=== PATIENT | male | born 1985 | race Hispanic/Latino ===

== ENCOUNTER 2020-04-10 17:33 | Inpatient (IN) | payer OTHER, SELFPAY ==
[~2020-04-10 17:33] MED LIST: Iopamidol-370 76% 500 ML 1 ML ONE
[2020-04-10] MEDS ORDERED: Morphine 4 MG/ML VIAL ONE ×3 (18:58→23:19)
[2020-04-10] MEDS ORDERED: Ondansetron PF 4 MG/2 ML Vial ONE (18:58)
[2020-04-10] MEDS ORDERED: Albuterol 200 PUFF (6.7GM INHALER) ONE (19:09)
--- NOTE | 2020-04-10 19:31 | CT ---
Exam: CT angiogram of the chest HISTORY: HIV with Kaposi syndrome. COMPARISON: None TECHNIQUE: CT angiogram of the chest is performed in the axial plane. Three-dimensional reformatted i mages are submitted for interpretation FINDINGS: Mediastinum: No mass, lymphadenopathy or hematoma. HEART: Normal size. No significant pericardial fluid. Aorta: No aneurysm or dissection Upper solid abdominal viscera: No abnormality enhancement. Trachea and central bronchi: Patent Pleural spaces: Small bilateral pleural effusionsAxilla: There are enlarged bilateral axillary lymph nodes. Relays Draftsperson right axillary lymph node measures 2.2 x 1.6 cm. Lung parenchyma: There is a linear opacification likely representing atelectasis. Consolidation due t o pneumonia or aspiration in the lower lobes cannot be entirely excluded. Pneumothorax: None Osseous structures: No lytic or blastic lesions Pulmonary arteries: Adequate contrast opacification pulmonary arterial system to the level of lobar a rteries. No filling defect to suggest pulmonary embolism. Evaluation the segmental and subsegmental arteries is limited due to timing of contrast bolus. IMPRESSION: 1. No evidence of pulmonary artery embolism to the level of the lobar arteries. 2. Enlarged bilateral axillary lymph nodes 3. Linear and more focal consolidation scattered throughout the lung parenchyma which may represent a reas of consolidation due to pneumonia or aspiration. Additional linear opacities may represent atelectasis.
--- NOTE | 2020-04-10 19:43 | CT ---
EXAM: CT ABDOMEN AND PELVIS HISTORY: Sepsis. HIV-positive. COMPARISON: None. Procedure: Multiple contiguous axial images were obtained and a CT of the abdomen and pelvis with IV contrast. C oronal reformats were performed. FINDINGS: Lower Chest: Refer to CT angiogram of the chest with regards to the lung parenchyma Vessels: Normal caliber aorta. Heart: Normal size. No significant pericardial fluid. Abdomen: Portal vein:Patent. Nonspecific periportal edema Gallbladder: Mild pericholecystic fluid. Liver: 0.7 cm hypodensity in the right hepatic lobe, to characterize. No enhancing masses. Pancreas: within normal limits. Spleen: Appropriate enhancement. Splenomegaly, measuring 16.7 cm Adrenals: within normal limits. Kidneys: Symmetric enhancement. No obstructive uropathy. Peritoneum: There is evidence of perihepatic and perisplenic fluid. Fluid tracks along the left and r ight paracolic gutter. Fluid is slightly complex. Bowel: Limited evaluation by the lack of oral contrast. No evidence of a small bowel obstruction. Ile ocecal junction appears to be normal. Normal caliber appendix. Cecum, ascending colon appear to have a normal appearance. There does appear to be mucosal thickening involving the descending colon a nd sigmoid colon. Correlate for infectious or inflammatory colitis. There appears be mucosal thickening involving the distal sigmoid colon and rectum. Correlate for proctitis. Mesentery and Retroperitoneum: There are enlarged mesenteric lymph nodes. Senior Net Web Developer enlarged lym ph node measures 1.6 x 1.3 cm. Abdominal Wall: within normal limits. Pelvis: Reproductive Organs: Reproductive organs are unremarkable. Pelvis: No mass, lymphadenopathy, free air or free fluid. There is stranding of the presacral fat. Bladder: There is enhancement of the bladder mucosa. Correlate for cystitis. Bones: within normal limits. IMPRESSION: 1. There are new appear to be reactive changes involving the abdominal mesentery with lymphadenopathy and fluid. Correlate for mesenteric lymphadenitis. 2. Correlate for cystitis. 3. Correlate for cholecystitis 4. Bowel wall thickening predominantly involving the colon. Correlate for colitis and proctitis.
[2020-04-10 21:05] LABS: Bacteria/HPF None Seen HPF (None Seen); Bilirubin Negative (Negative); Blood, Urine 3+ (Negative); Clarity Clear (Clear); Glucose, Urine (Dipstick) Normal (Negative); Ketone, Urine Negative (Negative); Leukocyte Negative Leu/uL (Negative); Nitrite Negative (Negative); Protein, Urine (Dipstick) 20 mg/dL (Neg-Trace); RBC/HPF Greater than 50 HPF (0-3); Renal Epithelial 0-3 HPF (None Seen); Squamous Epithelial None Seen HPF (0-3); Urobilinogen Normal mg/dL (Less than 2); pH, Urine 5.5 (5.0-9.0)
--- NOTE | 2020-04-10 21:31 | ULT ---
EXAM: US Gallbladder RUQ CLINICAL HISTORY: Pain and jaundice.. COMPARISON: None Correlation: Abdomen pelvis CT 04/10/2020 FINDINGS: Pancreas: This is pancreas has a normal echotexture Liver:Echogenic focus in the right hepatic lobe measuring 1 cm, nonspecific additional smaller echoge ellen foci are noted. Small amount of perihepatic fluid. Right hepatic lobe: 20.6 cm Gallbladder: No sonographic of cholelithiasis. Gallbladder wall is 0.3 cm with upper normal thickness . There is pericholecystic fluid. Becker's sign:Positive Portal Vein: Patent. Appropriate directional flow Bile ducts: 0.4 cm common bile duct diameter Right kidney: No hydronephrosis. Right kidney measures 12.2 cm in length. IMPRESSION: 1. Multiple echogenic foci in the right hepatic lobe of the liver, too small to further characterize. Small hemangiomas are a consideration. Confirmation with a nonemergent abdomen MRI is recommended. 2. Possible acalculous cholecystitis. Consider HIDA scan.
[2020-04-10 22:51] LABS: Lactic Acid 5.7 mmol/L (0.5-2.2)
[2020-04-10] MEDS ORDERED: Acetaminophen 325 MG TAB PO PRN (23:45)
[2020-04-10] MEDS ORDERED: Sodium Chloride 0.9% 1,000 ML IV SCH (23:45)
[2020-04-10] MEDS ORDERED: Ondansetron ODT 4 MG TAB SL PRN (23:45)
[2020-04-10] MEDS ORDERED: Ondansetron PF 4 MG/2 ML Vial IVP PRN (23:45)
[2020-04-11] MEDS ORDERED: Vancomycin 1 GM in Premix Bag 1 BAG IVPB SCH (00:30)
[2020-04-11] MEDS ORDERED: hydrALAZINE 20 MG/ML VIAL SLOW IVP PRN (00:54)
[2020-04-11] MEDS ORDERED: Promethazine HCl 12.5 MG in Sodium Chloride 0.9% 50 ML IVPB PRN (00:54)
[2020-04-11] MEDS ORDERED: Labetalol HCl 100 MG/20 ML VIAL SLOW IVP PRN (00:54)
[2020-04-11] MEDS ORDERED: cloNIDine 0.1 MG TAB PO PRN (00:54)
[2020-04-11] MEDS ORDERED: Acetaminophen 325 MG TAB PO PRN (00:54)
[2020-04-11] MEDS ORDERED: Guaifenesin DM 100-10/5 ML UDCUP PO PRN (00:54)
[2020-04-11] MEDS ORDERED: Ondansetron PF 4 MG/2 ML Vial IVP PRN (00:54)
[2020-04-11] MEDS ORDERED: Azithromycin 250 MG TAB PO SCH (01:00)
[2020-04-11] MEDS ORDERED: Azithromycin 200 MG/5 ML Oral Suspension PO SCH (01:00)
[2020-04-11] MEDS ORDERED: Cefepime 2 GM in Sodium Chloride 0.9% 100 ML IVPB SCH ×2 (01:00→06:00)
[2020-04-11] MEDS ORDERED: Electrolyte Replacement Protoc 1 EACH EACH FS SCH (01:00)
[2020-04-11 01:26] VITALS: BMI 26.2
[2020-04-11] MEDS: Sodium Chloride 0.9% 1,000 ML IV SCH ×4 (01:35→15:00)
[2020-04-11] MEDS: Morphine 4 MG/ML VIAL SLOW IVP PRN (03:01)
[2020-04-11 04:19] LABS: Platelet Count 19 thou/uL (130-400)
[2020-04-11 04:28] LABS: Band 9 % (5-11); Differential Comment Immature Cell(s); Hemoglobin 7.9 g/dL (14.0-18.0); Hypochromia SLIGHT = 6-15 cells (100X) (0-5/hpf); Lymphocytes 14 % (21-51); MDiff Complete? YES; Mean Corpuscular HGB CONC 31.7 g/dL (32.0-36.0); Mean Corpuscular Hemoglobin 26.9 pg (27.0-31.0); Mean Platelet Volume 13.4 fL (7.4-10.4); Metamyelocyte 1 % (0-0); Monocytes 7 % (0-10); Neutrophil 50 % (42-75); Platelet Morphology Comment Appears Decreased; RBC Distribution Width 17.8 % (11.5-14.5); Red Blood Cell (RBC) Count 2.94 mill/uL (4.70-6.10); Reflex for Review?? YES; White Blood Cell (WBC) Count 8.6 thou/uL (4.8-10.8)
[2020-04-11 04:30] LABS: Lactic Acid 7.3 mmol/L (0.5-2.2)
[2020-04-11 04:32] LABS: Anion Gap 21 mmol/L (10-20); BUN (Urea Nitrogen) 61 mg/dL (8.9-20.6); CK (CPK) 10 U/L (30-200); Calc. Creatinine Clearance 72 mL/min (70-130); Calcium 8.1 mg/dL (7.8-10.44); Carbon Dioxide 13 mmol/L (22-29); Chloride 109 mmol/L (98-107); Estimated GFR-MDRD 52; Glucose 127 mg/dL (70-105); Magnesium 1.4 mg/dL (1.6-2.6); Sodium 139 mmol/L (136-145)
--- NOTE | 2020-04-11 05:02 | PDOC.HHP ---
Hospitalist HPI - History of Present Illness Back/abdominal pain History of Present Illness: Patient is a 34 year old male with PMH HIV infection, kaposis sarcoma of colon HIV, anxiety, depression, PTSD, marijuana abuse who presents to ED as transfer from [facility] for sepsis, multifocal pneumonia, MINGO, history of HIV with Kaposi's sarcoma, intractable abdominal and back pain. Patient was diagnosed with HIV in 2018, has been compliant with all HIV medications and disease was controlled as of last CD4/viral load done 2 months ago. He was living in [place], and there was diagnosed with kaposis sarcoma of the colon, was seen by many specialists there including an oncologist and patient recieved chemot herapy, last dose 2-3 weeks ago. He was also diagnosed with pneumonia at that time, possible PCP pneumonia he is not sure. He is poor historian and does not remember what hospital this was. He moved back here after discharge, does not have an ID doctor anymore. He is compliant with HIV therapy except he missed yesterdays dose. He came to the hospital last night because he had worsening shortness of breath with cough, weakness, abdominal pain, nausea, vomiting over the past few days. The pain is his main complaint and he requests dilaudid and oxycontin 30mg twice a day for this. The patient was given vancomycin, Bactrim, Levaquin, cefepime, IV fluids, Solu-Medrol, inhaler, fentanyl and morphine prior to transfer with some improvement in his symptoms. His lactic acid was 5.0 and has been steadily rising to 7. Other labs of notice include elevated lipase and elevated LFTs. Imaging in ED includes Chest CT which reveals consolidation scattered throughout the lung parenchyma, concerning for pneumonia and atalectasis. Abdomen/pelvis CT scan concerning for mesenteric lymphadenitis, cystitis, cholecystitis, colitis and proctitis. His vitals are tachycardic, no hypotension. RUQ US reveals echogenic foci in liver, possible acalculous cholecystitis. Overall picture in ED concerning for severe sepsis with multiple possible sources including multifocal pneumonia, acute cholecystitis, colitis, with history of HIV and Kaposi's sarcoma. The patient was given IV fluids, IV antibiotics, IV pain medication and [place] [facility] [place] physician consulted with general surgery who state that he should not have surgery to remove his gallbladder at this time and instead will have a drain placed tomorrow with interventional radiology. Sound consulted for admission. Hospitalist ROS - Review of Systems Constitutional: reports: chills, weakness, malaise. denies: fever, sweats, other Eyes: denies: pain, vision change, conjunctivae inflammation, eyelid inflammation, redness, other ENT: denies: ear pain, ear discharge, nose pain, nose discharge, nose congestion, mouth pain, mouth swelling, throat pain, throat swelling, other Respiratory: reports: shortness of breath. denies: cough, dry, hemoptysis, SOB with excertion, pleuritic pain, sputum, wheezing, other Cardiovascular: denies: chest pain, palpitations, orthopnea, paroxysmal noc. dyspnea, edema, light headedness, other Gastrointestinal: reports: nausea, vomiting, abdominal pain. denies: diarrhea, constipation, melena, hematochezia, other Genitourinary: denies: dysuria, frequency, incontinence, hematuria, retention, other Musculoskeletal: denies: neck pain, shoulder pain, arm pain, back pain, hand pain, leg pain, foot pain, other Skin: reports: rash, lesions. denies: pete, bruising, other Neurological: denies: weakness, numbness, incoordination, change in speech, confusion, seizures, other All other systems reviewed; all pertinent +/- noted in HPI/Subj - Medication Medications: Active Medications Generic Name Dose Route Start Last Admin Trade Name Freq PRN Reason Stop Dose Admin Sodium Chloride 1,000 mls @ 125 mls/hr 04/11/20 01:00 04/11/20 01:35 Normal Saline 0.9% IV Not Given .Q8H TANI Sodium Chloride 1,000 mls @ 999 mls/hr 04/11/20 04:45 04/11/20 04:47 Normal Saline 0.9% IV 04/11/20 06:45 1,000 mls .Q1H1M TANI Administration Morphine Sulfate 4 mg 04/11/20 00:53 04/11/20 03:01 Morphine 4 Mg/Ml Vial SLOW IVP 4 mg Q4H PRN Administration Severe Pain (7-10) Hospitalist History - Past Medical History Other Medical History: HIV, kaposis sarcoma of colon, anxiety, depression, PTSD, marijuana abuse - Past Surgical History Past Surgical History: reports: no pertinent history - Family History Family History: reports: no pertinent history - Social History Smoking Status: Never smoker Alcohol: reports: None Drugs: reports: marijuana - Exam General Appearance: awake alert, ill appearing Eye: PERRL, anicteric sclera ENT: normocephalic atraumatic, no oropharyngeal lesions, moist mucosa Neck: supple, symmetric, no JVD, no thyromegaly, no lymphadenopathy, no carotid bruit Heart: RRR, no murmur, no gallops, no rubs, normal peripheral pulses Respiratory: CTAB, no wheezes, no rales, no ronchi, normal chest expansion, no tachypnea, normal percussion Gastrointestinal: soft, non-distended, no guarding, no rigidity Gastrointestinal - other findings: tender to palpation diffusely, bowel sounds+ Extremities: no cyanosis, no clubbing, no edema, 1+ LE edema (R leg) Extremities - other findings: Rash to R plantar aspect of foot, appears consistent with kaposi sarcoma Skin - other findings: R leg skin changes as above Neurological: cranial nerve grossly intact, normal sensation to touch, no weakness, no focal deficits, no new deficit Musculoskeletal: normal tone, normal strength, no muscle wasting Psychiatric: normal affect, normal behavior, A&O x 3 Hospitalist Results - Labs Result Diagrams: 04/11/20 03:35 04/11/20 03:35 Lab results: WBC 8.6 thou/uL (4.8-10.8) 04/11/20 03:35 Hgb 7.9 g/dL (14.0-18.0) L 04/11/20 03:35 Hct 25.0 % (42.0-52.0) L 04/11/20 03:35 MCV 85.0 fL (78.0-98.0) 04/11/20 03:35 Plt Count 19 thou/uL (130-400) L* 04/11/20 03:35 Band Neuts % (Manual) 9 % (5-11) 04/11/20 03:35 Sodium 139 mmol/L (136-145) 04/11/20 03:35 Potassium 4.0 mmol/L (3.5-5.1) 04/11/20 03:35 Chloride 109 mmol/L (98-107) H 04/11/20 03:35 Carbon Dioxide 13 mmol/L (22-29) L 04/11/20 03:35 BUN 61 mg/dL (8.9-20.6) H 04/11/20 03:35 Creatinine 1.54 mg/dL (0.7-1.3) H 04/11/20 03:35 Glucose 127 mg/dL (70-105) H 04/11/20 03:35 Lactic Acid 7.3 mmol/L (0.5-2.2) H* 04/11/20 03:35 Calcium 8.1 mg/dL (7.8-10.44) 04/11/20 03:35 Creatine Kinase 10 U/L (30-200) L 04/11/20 03:35 Urine Ketones Negative mg/dL (Negative) 04/10/20 20:24 Urine Blood 3+ (Negative) A 04/10/20 20:24 Urine Nitrite Negative (Negative) 04/10/20 20:24 Ur Leukocyte Esterase Negative Desiree/uL (Negative) 04/10/20 20:24 Urine RBC Greater than 50 HPF (0-3) A 04/10/20 20:24 Urine WBC 7-10 HPF (0-3) A 04/10/20 20:24 Ur Squamous Epith Cells None Seen HPF (0-3) 04/10/20 20:24 Urine Bacteria None Seen HPF (None Seen) 04/10/20 20:24 Additional comment: VITAL SIGNS Mon Apr 10, 2020 23:10 JAMEEL Lowry, [facility] BP: 112/85 Pulse: 125 Resp: 39 Temp: 97.5 (Oral) Pain: 10 O2 sat: 97 on (2L Oxygen) Time: 04/10/2020 23:10. Chest CT Other findings: 1. No evidence of pulmonary artery embolism to the level of the lobar arteries. 2. Enlarged bilateral axillary lymph nodes 3. Linear and more focal consolidation scattered throughout the lung parenchyma which may represent areas of consolidation due to pneumonia or aspiration. Additional linear opacities may represent atelectasis. Abdomen/pelvis CT scan Other findings: IMPRESSION: 1. There are new appear to be reactive changes involving the abdominal mesentery with lymphadenopathy and fluid. Correlate for mesenteric lymphadenitis. 2. Correlate for cystitis. 3. Correlate for cholecystitis 4. Bowel wall thickening predominantly involving the colon. Correlate for colitis and proctitis. Hospitalist H&P A/P - Plan Plan: Patient is a 34 year old male with PMH HIV infection, kaposis sarcoma of colon HIV, anxiety, depression, PTSD, marijuana abuse who presents to ED as transfer from [place] for sepsis, multifocal pneumonia, MINGO, history of HIV with Kaposi's sarcoma, intractable abdominal and back pain. 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 He was living in [place], and there was diagnosed with kaposis sarcoma of the colon, was seen by many specialists there including an oncologist and patient received chemotherapy, last dose 2-3 weeks ago. He was also diagnosed with pneumonia at that time, possible PCP pneumonia he is not sure. He now presents here with shortness of breath with cough, weakness, abdominal pain, na usea, vomiting. patient was given vancomycin, Bactrim, Levaquin, cefepime in ED, his lactic acid was 5.0 and has been steadily rising to 7. Other labs of notice include elevated lipase and elevated LFTs. Imaging in ED includes Chest CT which reveals consolidation scattered throughout the lung parenchyma, concerning for pneumonia and atalectasis. Abdomen/pelvis CT scan concerning for mesenteric lym phadenitis, cystitis, cholecystitis, colitis and proctitis. His vitals are tachycardic, tachypneic no hypotension. RUQ US reveals echogenic foci in liver, possible acalculous cholecystitis. - admit to [facility] - give IVF 30 cc/kg bolus - check CD4/viral load - consult pulmonary, ID, GI, surgery, appreciate assistance - NPO, patient may need IR drain today - continue cefepime, vancomycin, bactrim and add azithromycin in case MAC - follow culture results - start PRN pain medications, monitor response # anemia # thrombocytopenia suspect related to recent chemotherapy, trend CBC - give 1u pRBC if hgb <7 - give 1u platelets if plt < 10k or < 50k w/ bleeding # acute liver failure - tbili 5, elevated AKP, imaging concerning for cholecystitis - consult GI and surgery, trend LFTs - ED physician consulted with general surgery who state that he should not have surgery to remove his gallbladder at this time and instead will have a drain placed with interventional radiology DVT/GI ppx full code
[2020-04-11] MEDS: Magnesium 2 GM/50 ML 2 GM in Premix Bag 1 BAG IVPB SCH ×2 (05:29→06:17)
[2020-04-11 07:37] LABS: ALT (SGPT) 25 U/L (8-55); AST (SGOT) 34 U/L (5-34); Albumin 2.1 g/dL (3.5-5.0); Alkaline Phosphatase 272 U/L (40-110); Bilirubin, Direct 2.3 mg/dL (0.1-0.3); Bilirubin, Total 2.8 mg/dL (0.2-1.2); Protein, Total 5.9 g/dL (6.0-8.3)
[2020-04-11] MEDS: Cefepime 2 GM in Sodium Chloride 0.9% 100 ML IVPB SCH ×3 (08:30→22:55)
[2020-04-11] MEDS: Sulfameth/Trimethoprim DS 800-160mg TAB PO SCH ×3 (08:30→21:35)
[2020-04-11] MEDS: Polyethylene Glycol 3350 17 GM Packet PO SCH (08:31)
[2020-04-11] MEDS: Senokot S 8.6-50 MG TAB PO SCH ×2 (08:32→21:33)
[2020-04-11 08:56] LABS: Lactic Acid 7.7 mmol/L (0.5-2.2)
[2020-04-11] MEDS ORDERED: Heparin 5,000 UNITS/ML VIAL SC SCH (09:00)
--- NOTE | 2020-04-11 09:11 | PDOC.HOSPP ---
- Subjective Encounter Date: 04/11/20 Encounter Time: 09:09 Subjective: pain is his main complaint, seems tto be centered on lower abd - Objective Vital Signs & Weight: Vital Signs (12 hours) Temp Pulse Ox 04/11/20 06:00 97.9 F 04/11/20 04:00 97.9 F 04/11/20 02:00 97.8 F 04/11/20 01:00 97.8 F 04/11/20 00:30 95 04/11/20 00:14 97.6 F Weight Weight 167 lb 12.8 oz Most Recent Monitor Data Heart Rate from ECG 115 NIBP 100/68 NIBP BP-Mean 78 Respiration from ECG 45 SpO2 93 I&O: 04/10/20 04/11/20 04/12/20 06:59 06:59 06:59 Intake Total 2950 Output Total 490 Balance 2460 Result Diagrams: 04/11/20 03:35 04/11/20 03:35 Additional Labs: Accuchecks 04/11/20 00:04 POC Glucose 96 Hospitalist ROS - Medication Medications: Active Medications Generic Name Dose Route Start Last Admin Trade Name Freq PRN Reason Stop Dose Admin Sodium Chloride 1,000 mls @ 125 mls/hr 04/11/20 01:00 04/11/20 01:35 Normal Saline 0.9% IV Not Given .Q8H TANI Cefepime HCl 2 gm/ Sodium 100 mls @ 200 mls/hr 04/11/20 08:00 04/11/20 08:30 Chloride IVPB 100 mls 0800,1600,2359 TANI Administration Morphine Sulfate 4 mg 04/11/20 00:53 04/11/20 03:01 Morphine 4 Mg/Ml Vial SLOW IVP 4 mg Q4H PRN Administration Severe Pain (7-10) Pantoprazole Sodium 40 mg 04/11/20 09:00 04/11/20 08:30 Pantoprazole 40 Mg Tab PO 40 mg DAILY TANI Administration Polyethylene Glycol 17 gm 04/11/20 09:00 04/11/20 08:31 Polyethylene Glycol 3350 17 Gm Packet PO Not Given DAILY TANI Senna/Docusate Sodium 1 tab 04/11/20 09:00 04/11/20 08:32 Senokot S 8.6-50 Mg Tab PO Not Given BID TANI Sodium Chloride 10 ml 04/11/20 09:00 04/11/20 08:32 Flush - Normal Saline 10 Ml Syringe IVF 10 ml Q12HR TANI Administration Trimethoprim/Sulfamethoxazole 2 tab 04/11/20 09:00 04/11/20 08:30 Sulfameth/Trimethoprim Ds 800-160mg Tab PO 04/25/20 09:01 2 tab TID TANI Administration - Exam General Appearance: awake alert Neck: JVD Heart: RRR, no murmur Heart - other findings: tachy Respiratory - other findings: rhonchi diffuse Gastrointestinal: soft, normal bowel sounds, tender to palpation Extremities: 1+ LE edema Hosp A/P (1) HIV (human immunodeficiency virus infection) Code(s): B20 - HUMAN IMMUNODEFICIENCY VIRUS [HIV] DISEASE Status: Acute (2) Kaposi sarcoma Code(s): C46.9 - KAPOSI'S SARCOMA, UNSPECIFIED Status: Acute (3) Thrombocytopenia Code(s): D69.6 - THROMBOCYTOPENIA, UNSPECIFIED Status: Acute (4) Lactic acidosis Code(s): E87.2 - ACIDOSIS Status: Acute (5) Coagulopathy Status: Acute (6) Acute cholecystitis Code(s): K81.0 - ACUTE CHOLECYSTITIS Status: Acute - Plan apparently needs percutaneous drainagee of GB will need plateletts prior to procedure continue iv antibx needs increased fluid intake iv discuss with access consultant multiple consultations pending prognosis guarded
[2020-04-11] MEDS: oxyCODONE 5 MG TAB PO PRN ×3 (12:31→21:34)
[2020-04-11] MEDS ORDERED: Vancomycin HCl 1.25 GM in Sodium Chloride 0.9% 250 ML 250 ML IVPB SCH (13:00)
[2020-04-11] MEDS: Sodium Bicarbonate 70 MEQ in Sodium Chloride 0.45% 1,000 ML IV SCH (15:17)
--- NOTE | 2020-04-11 17:00 | CON ---
DATE OF CONSULTATION: 04/11/2020 REASON FOR CONSULTATION: Sepsis, Kaposi sarcoma of colon, possible colitis. HISTORY OF PRESENT ILLNESS: [place] is a 34-year-old man, admitted to the hospital last night with sepsis. He has a complicated recent past medical history. He says that he was diagnosed with HIV back in 2018 and has been on antiretrovirals since that time. He does have history of marijuana use as well, but he was recently hospitalized for several weeks in [place] and diagnosed with Kaposi sarcoma of the colon. He cannot recall ever being told that there was any issue with the liver or the gallbladder during the hospitalization. He does recall he was treated for pneumonia. He cannot recall what type of pneumonia this was. He had presented with a lot of lower abdominal pain and rectal bleeding as well as shortness of breath. He says he underwent upper and lower endoscopy and that is how the Kaposi sarcoma of the rectum was diagnosed. He subsequently underwent some chemotherapy treatment, which he does not remember the name of. Last finished that about 2 or 3 weeks ago. He moved from [place] to here to be closer to family and was supposed to establish with an oncologist, but he had not established yet. Over the past several days, he had significantly worsening lower abdominal pain to generalized abdominal pain, continued rectal bleeding and some stool incontinence as well as rapidly progressive shortness of breath and cough. He presented last night and was found to be septic and pancytopenic. He received broad-spectrum antibiotics. He had CT imaging suggestive of possible acalculous cholecystitis with gallbladder wall thickening and pericholecystic fluid, but also a lot of mesenteric edema and lymphadenopathy as well as multiple areas of colonic thickening. Pain is his current worst complaint. He was seen by Dr. Flores, who has recommended interventional radiology, percutaneous cholecystostomy. COVID testing is pending. Consultations from Infectious Disease and Pulmonary are also pending. REVIEW OF SYSTEMS: Full review of systems including constitutional, head, eyes, ears, nose, throat, GI, , cardiovascular, respiratory, musculoskeletal, and neurologic systems is negative except as noted in the HPI. PAST MEDICAL HISTORY: 1. HIV diagnosed 2017. 2. Depression and anxiety. 3. PTSD. 4. Marijuana abuse. 5. Kaposi sarcoma of the rectum, evidently recently diagnosed in [place], has received chemotherapy in the last 2 to 3 weeks. 6. Pneumonia. SOCIAL HISTORY: Patient uses marijuana. No tobacco or alcohol use. FAMILY HISTORY: Noncontributory. ALLERGIES: NO KNOWN DRUG ALLERGIES. HOSPITAL MEDICATIONS: 1. Cefepime 2 g IV q.8 hours. 2. Morphine 4 mg q.4 hours p.r.n. 3. Pantoprazole 40 mg daily. 4. Vancomycin IV q.12 hours. PHYSICAL EXAMINATION: VITAL SIGNS: Temperature is 97.9, pulse 115, blood pressure 100/68, and oxygen saturation 93% on 3 L nasal cannula. GENERAL: A 34-year-old man, appearing chronically ill, sitting up in bed, in moderate distress from abdominal pain and shortness of breath. SKIN: No jaundice. No rashes were palpable. EYES: No scleral icterus. Extraocular movements intact. ENT: Mucous membranes moist. No oral lesions. LYMPH: No submandibular or supraclavicular lymphadenopathy. THYROID: Nontender to palpation. HEART: Regular, tachycardia. LUNGS: Bibasilar crackles. He is tachypneic. No wheezing. ABDOMEN: Nondistended. Bowel sounds are present. Tender to palpation with diffuse rebound tenderness as well. EXTREMITIES: No peripheral edema. VESSELS: Radial pulses 2+ bilaterally. NEURO: Cranial nerves II through XII intact bilaterally. No focal deficits. LABORATORY STUDIES: Hemoglobin 7.9, platelets 19, WBC 8.6, and MCV 85. INR 1.7. Sodium 139, potassium 4.0, BUN 61, and creatinine 1.54. Lactic acid initially 5.7, now up to 7.7. BNP is 80. CK is 10. Total bilirubin initially 5.0, now down to 2.8, direct bilirubin is 2.3, alkaline phosphatase 272, AST 34, ALT 25, albumin 2.1, lipase 202. Urinalysis shows greater than 50 rbc's, 7 to 10 wbc's. COVID PCR is pending. G/C is pending. CD4 count and HIV quantitative are also pending. IMAGING STUDIES: Chest x-ray showed atelectasis of the right lung base and poor inspiration. Abdominal ultrasound showed gallbladder thickness of the upper limit of normal at 3 mm with pericholecystic fluid. No stones. Normal common bile duct. Multiple nonspecific right liver foci, which are too small to characterize. CT of the abdomen and pelvis demonstrated 7-mm right liver lobe density, which is unable to be characterized. There is mesenteric lymphadenopathy and perihepatic and perisplenic fluid. There is thickening throughout the left side of the colon. CT angiogram of the chest showed no evidence of pulmonary embolism. There is bilateral axillary lymphadenopathy and scattered lung consolidation. ASSESSMENT AND PLAN: 1. Sepsis. 2. Probable acute acalculous cholecystitis. Interestingly, the patient does not recall having ever had any LFT elevation or gallbladder issues during his recent hospitalization. I have spoken with Dr. Flores. He has recommended cholecystostomy tube placement per Interventional Radiology, and I believe this is being coordinated for later today. I am going to order some further liver lab workup including viral hepatitis serologies and autoimmune markers. I do not see any evidence of biliary obstruction with normal common bile duct diameter. Consider other possible sources of sepsis including pneumonia, infectious colitis, and urinary tract infection. Workup per Primary Service, but I will go ahead and order stool studies for pathogens including Clostridium difficile, particularly given the colonic thickening shown on the CT. 3. Thrombocytopenia, possibly secondary to recent chemotherapy and/or consumption from sepsis. Monitor closely and transfuse as needed. 4. Anemia. This is normocytic. He has a daily rectal bleeding, which sounds like it is probably from the Kaposi sarcoma with thrombocytopenia and coagulopathy. This has the potential to worsen monitor H and H closely and transfuse as needed. 5. Kaposi sarcoma of the colon. This was evidently extensively worked up during recent hospitalization in [place]. Effort should be made to obtain records from that hospitalization. I will go ahead and order Oncology inpatient consultation. Infectious Disease consultation is also pending. No plan for any endoscopic examination at this time. Prognosis is guarded. GI can follow along with you. Please call anytime with questions or concerns. Job ID: [id number]
--- NOTE | 2020-04-11 19:30 | CON ---
DATE OF CONSULTATION: 04/11/2020 REASON FOR CONSULTATION: This patient is in the [facility]. HISTORY OF PRESENT ILLNESS: This patient is a 34-year-old with a history of HIV, Kaposi sarcoma, who presents basically being hospitalized for the last 4 months from [place] and [place]. He has severe abdominal pain. He says he has been masking the abdominal pain by taking NSAIDs. He says he has been diagnosed with Kaposi sarcoma of the colon. It is felt that he may have chronic cholecystitis and cholecystostomy tube has been recommended. I have been asked to see him because he is in the [facility]. PAST MEDICAL HISTORY: Remarkable for; 1. HIV with noncompliance of medication. 2. Kaposi sarcoma of the colon. 3. Depression. 4. Anxiety. 5. PTSD. PAST SURGICAL HISTORY: He has had a colonoscopy in the past and tonsillectomy. SOCIAL HISTORY: He abuses marijuana. Does not smoke tobacco. Does not consume alcohol. Does not use illicit drugs otherwise. FAMILY MEDICAL HISTORY: Marked for colon cancer in his grandfather. MEDICATIONS: Prior to admission, he was taking some type of combination antiretroviral. He has also recently had chemo for the Kaposi sarcoma. REVIEW OF SYSTEMS: Remarkable for abdominal pain, anxiety. PHYSICAL EXAMINATION: VITAL SIGNS: Temperature 97.9, pulse 122, blood pressure 100/68, O2 saturation in the low 90s on 3 L. GENERAL: He is awake. He is very anxious. HEENT: Unremarkable. Oropharynx is clear. NECK: No adenopathy or JVD. CHEST: Fairly clear posteriorly, anteriorly bilaterally. CARDIOVASCULAR: S1, S2. Tachycardic. ABDOMEN: Mildly distended. Tender throughout. EXTREMITIES: No clubbing or cyanosis. He has purplish lesions primarily on the dorsum of his feet DIAGNOSTIC DATA: His abdominal CT demonstrated mesenteric lymphadenopathy, some indication of cholecystitis, bowel wall thickening consistent with colitis and proctitis. His chest CT demonstrated some areas of consolidation in his lungs. LABORATORY DATA: White blood cell count 8.6, hematocrit 25, platelet count 19, with 50% neutrophils, 9% bands. Sodium 139, potassium 4, chloride 109, CO2 of 13, BUN 61, creatinine 1.5, glucose 127, AST 34, ALT 25, total bilirubin 2.8, alkaline phosphatase 272, lactate 7.7, anion gap is 17. ASSESSMENT: 1. Cholecystitis. 2. Kaposi sarcoma of the colon. 3. Severe lactic acidosis. 4. Thrombocytopenia. 5. HIV/AIDS. PLAN: 1. I would change his IV fluids to contain bicarbonates. 2. Basically needs broad-spectrum IV antibiotics in treatment of the underlying infection. 3. Does not need mechanical ventilation at this time, but that may change. Job ID: [id number] MTDD
--- NOTE | 2020-04-11 21:10 | CON ---
DATE OF CONSULTATION: REASON FOR CONSULTATION: HIV with advanced immunosuppression, Kaposi sarcoma and severe abdominal pain. HISTORY OF PRESENT ILLNESS: A 34-year-old first admission to this hospital who had been living in [place] and [place] for previously having been diagnosed with HIV infection in 2018. He had been on Biktarvy until he was transferred back to his home town in [place] with his family, and he has not been taking any antiretrovirals for a few months now. He apparently developed Kaposi sarcoma probably as the index diagnosis and the sequence of events are not very clear, but he became ill with abdominal pain and was admitted to a hospital in [place], where he stayed for quite a few weeks and reportedly was given chemotherapy for Kaposi sarcoma, had endoscopies, upper and lower endoscopy and apparently had a Kaposi sarcoma mass identified in his rectosigmoid. He was having some issues with bowel movements and that improved a bit. He then decided for some reason to move back to town with his family to continue his treatment here; although, in the ER history it states that he moved within two weeks. It seems that he has been off medication for more than a few months. He developed a worsening abdominal pain for the past many months, reportedly with some nausea and then vomiting and the pain became intolerable, so he came to the emergency room. It is stated in the emergency room note that the patient had also shortness of breath, but it seems like the breathing issues are more related to the abdominal pain that happens anytime he takes deep breath. On arrival, he was given broad-spectrum antimicrobial coverage and his findings initially showed pulse 118, respiratory rate 34, temperature 97.9, and O2 saturation 91%. He remained afebrile in the emergency room. The exam showed tachycardia. He appeared in acute distress because of abdominal pain. He appeared alert and oriented, follows commands. The respiratory exam showed a few inspiratory crackles and a few rhonchi scattered through right and left sides. The heart exam was described as normal. Abdomen with diffuse tenderness, which was moderate, but no rigidity or guarding. No rebound tenderness. He had those lesions of Kaposi sarcoma in the right and left feet. His neuro examination was described as nonfocal. He had an abdomen and pelvis CT, which demonstrated no pericardial fluid. Portal vein was patent. Periportal edema was seen. Mild pericholecystic fluid. There was hypodensity in the right hepatic lobe, but no enhancing masses. There was evidence of perihepatic and perisplenic fluid tracking along the left and right paracolic gutters, and fluid was felt to be slightly complex in nature. Oral contrast was not given, so the bowel was not able to be evaluated properly. No obstruction noted. Appendix normal. Colon and cecum appeared normal. Some mucosal thickening in the descending colon and sigmoid colon. The chest CT demonstrated no pulmonary embolism, enlarged bilateral axillary lymph nodes. Focal consolidation scattered throughout the lung parenchyma noted. Currently, Mr. Land is in quite severe distress from abdominal pain, is very anxious and denies any headaches. No visual symptoms, sore throat, odynophagia, or dysphagia. Every time he takes a deep breath, it hurts in the abdominal area throughout the abdomen. No sputum production. No back pain. No joint symptoms. No neurological symptoms. PAST MEDICAL HISTORY: HIV seropositive status since 2018, Kaposi sarcoma unclear of the duration. In the ER note, it is stated 2 to 3 weeks ago, but actually I think it is more like 6 months ago diagnosed in [place], had received chemotherapy there. Negative surgical history except for bone marrow exam and colonoscopies done in [place], do not have results for those yet. ALLERGIES: NONE. MEDICATIONS: He is supposed to be on Biktarvy, but he had not taken it reportedly in many months. ALLERGY HISTORY: None. PHYSICAL EXAMINATION: VITAL SIGNS: He has been afebrile. Blood pressure 100/68, heart rate 119, respiratory rate 29 to 45, and O2 saturation 91%. SKIN: Shows lesions consistent with Kaposi sarcoma with violaceous nodules in the plantar aspect of the right foot and the Achilles area of left side. No lymphadenopathy. HEENT: Pale conjunctivae. Pupils are equal. Oral cavity with numerous teeth in place in fairly decent shape. Mucosal surfaces are normal. NECK: Supple. LUNGS: Symmetric breath sounds. Few rhonchi and few basilar crackles particularly in the right side. HEART: S1 and S2. Regular rate without murmurs. No S3 or S4. ABDOMEN: Mildly to moderately distended, soft with diffuse tenderness throughout the abdominal area. GENITAL: Normal. Perianal examination without any masses. No hemorrhoids. NEUROLOGIC: He moves extremities on command. His pulses are 1+ in dorsalis pedis. His cognitive function appears to be intact despite he is having a lot of pain. LABORATORY DATA: White cell count 8.6, hemoglobin 7.9, MCV 85, platelets 19,000, neutrophil percentage 50, bands 9, lymphocytes 14, monocytes 7, metamyelocytes 1. Sodium 139, creatinine 1.54, lactic acid 5.7 and 7.7. Bilirubin 2.3, AST 34, ALT 25, alkaline phosphatase 272, albumin 2.1. Serum total protein 5.9. CK 10. Urinalysis; 7 to 10 wbc's, protein was 20, greater than 50 rbc's. IMAGING STUDIES: Have been discussed above. He had an abdomen ultrasound, which demonstrated echogenic foci in right hepatic lobe, small hemangiomas, possible acalculous cholecystitis, but no cholelithiasis noted. ASSESSMENT: 1. Human immunodeficiency virus since 2019 with erratic adherence to antiretroviral therapy. 2. Kaposi sarcoma diagnosed elsewhere, having received short course of chemotherapy thus far. Presumably with mostly gastrointestinal involvement as well as cutaneous involvement in the feet, the gastrointestinal involvement seems to be limited to the descending colon; although, we do not have records from his other studies done in [place]. He also had a bone marrow biopsy and we need to obtain the results. 3. Diffuse abdominal pain, which is chronic and is progressive and has developed intensity that forced him to come to the hospital. 4. Severe thrombocytopenia. 5. Pulmonary infiltrates. DISCUSSION: The patient's primary diagnosis includes the advanced HIV infection with a CD4 cell count likely less than 200, probably even less than that, which has not been treated for the past few months with his prescribed anti-retroviral from the other states. I guess the patient did not realize the consequences of stopping his treatment in the process of moving over to his hometown in [place] from [place]. He also has this diagnosis of Kaposi sarcoma with visceral involvement, which I am afraid is responsible for the current clinical presentation, although additional complications may be present. The differential diagnosis includes Kaposi sarcoma associated visceral involvement with perforation and peritonitis versus primary body cavity lymphoma associated with Kaposi sarcoma virus or human herpesvirus 8 or Kaposi sarcoma associated cytokine syndrome. I do not believe that cholecystitis is responsible for the patient's symptoms. The pain is too diffuse and the findings in the radiology examination more consistent with peritoneal inflammatory change, which is likely due to the either perforation from Kaposi sarcoma or primary involvement of the body cavity by Kaposi sarcoma or primary body cavity lymphoma associated with human herpesvirus 8. Any of these two possibilities have a very poor prognosis. It would be important to obtain records from the bone marrow biopsy that was done in [place] as well as the colonoscopies. In terms of management for this syndrome, unfortunately, the precise diagnosis will be important but he is not eligible for laparoscopy at this moment because of thrombocytopenia. Thrombocytopenia could be either related to the Kaposi sarcoma cytokine syndrome or immune thrombocytopenia associated with HIV infection. Immune thrombocytopenia with HIV infection can be treated with gammaglobulin infusion and corticosteroids in addition to antiretroviral therapy. Administration of antiretroviral therapy will be problematic because of his abdominal pain and inability to take oral treatment that will have to be assessed. So, I would think that we would have to establish the diagnosis with the abdominal pain and likely peritonitis to see if it is from Kaposi sarcoma from a primary body cavity lymphoma if he has a bacterial complication due to Kaposi sarcoma involvement of the bowel, for example one way or another, evidently his prognosis to the any of those diagnosis would be very poor. Job ID: [id number] CEDRIC
[2020-04-11] MEDS: methylPREDNISolone Sod Succ 40 MG VIAL IVP SCH (21:32)
[2020-04-11] MEDS: Lopinavir/Ritonavir 80 MG/20 MG per ML Oral Solution PO SCH (21:33)
[2020-04-11 22:17] VITALS: TEMP 97.3
[2020-04-11] MEDS ORDERED: Melatonin 3 MG TAB PO PRN (22:19)
--- NOTE | 2020-04-11 23:48 | CON ---
DATE OF CONSULTATION: 04/11/2020 CHIEF COMPLAINT: Acalculous cholecystitis. HISTORY OF PRESENT ILLNESS: This is a 34-year-old male with a history of admission to the [facility] for pneumonia, sepsis, multiple problems, complaining of diffuse abdominal pain. CT scan of the abdomen revealed potential cholecystitis. Ultrasound showed no gallstones, normal common bile duct, but also thickened gallbladder wall. The question is whether he has acalculous cholecystitis. The patient also has been told in the past he had Kaposi sarcoma of the colon. We do not have all that information as of yet. PAST MEDICAL HISTORY: Includes HIV positive with age related illness, Kaposi sarcoma of colon, anxiety, depression, PTSD. PAST SURGICAL HISTORY: Denies. SOCIAL HISTORY: Marijuana, but no alcohol or other drugs. No smoking otherwise. REVIEW OF SYSTEMS: 10-system review of systems is otherwise negative unless described above. FAMILY HISTORY: Noncontributory to GI related malignancy or anesthetic related complications. PHYSICAL EXAMINATION: VITAL SIGNS: Blood pressure is 97/65, pulse 122, respirations are 20. He is afebrile. HEENT: Sclerae anicteric. Oropharynx is clear. NECK: No lymphadenopathy. CHEST: Coarse breath sounds bilateral. HEART: Increased rate, regular rhythm. ABDOMEN: Soft, diffusely tender. No significant upper abdominal tenderness or in the right upper quadrant, but diffuse guarding without rebound tenderness. EXTREMITIES: No ischemia or edema to extremities. LABORATORY DATA: White blood cell count is 8, hemoglobin 7.9, platelet count is 19. Sodium 139, potassium is 4.0, creatinine 1.54. His total bilirubin is 2.8, alkaline phosphatase 272. ASSESSMENT: 1. Human immunodeficiency virus positive, untreated with age related illnesses. 2. Abdominal pain, diffuse. CT and ultrasound findings of acalculous cholecystitis. 3. History of Kaposi sarcoma of colon. PLAN: If there is any concern for gallbladder related illness, I would plan on cholecystostomy tube. I do not think that this whole clinical picture is related to acalculous cholecystitis. As soon as his COVID test is negative, can have that placed by Interventional Radiology. Job ID: [id number]
[2020-04-12] MEDS: Morphine 4 MG/ML VIAL SLOW IVP PRN ×2 (03:04→11:33)
[2020-04-12] MEDS: Sodium Bicarbonate 70 MEQ in Sodium Chloride 0.45% 1,000 ML IV SCH (03:14)
[2020-04-12 03:53] LABS: INR-International Normal Ratio 1.8; Prothrombin Time 21.3 sec (12.0-14.7)
[2020-04-12 04:14] LABS: Hemoglobin 7.3 g/dL (14.0-18.0); Mean Corpuscular HGB CONC 32.2 g/dL (32.0-36.0); Mean Corpuscular Hemoglobin 27.4 pg (27.0-31.0); Mean Corpuscular Volume 85.1 fL (78.0-98.0); Mean Platelet Volume 15.8 fL (7.4-10.4); Platelet Count 12 thou/uL (130-400); RBC Distribution Width 18.3 % (11.5-14.5); Red Blood Cell (RBC) Count 2.67 mill/uL (4.70-6.10); White Blood Cell (WBC) Count 7.6 thou/uL (4.8-10.8)
[2020-04-12 04:34] LABS: ALT (SGPT) 20 U/L (8-55); AST (SGOT) 34 U/L (5-34); Alkaline Phosphatase 177 U/L (40-110); Bilirubin, Direct 2.6 mg/dL (0.1-0.3); Bilirubin, Total 3.1 mg/dL (0.2-1.2); Protein, Total 5.9 g/dL (6.0-8.3)
[2020-04-12 04:42] LABS: Anion Gap 25 mmol/L (10-20); BUN (Urea Nitrogen) 78 mg/dL (8.9-20.6); Calc. Creatinine Clearance 45 mL/min (70-130); Calcium 7.6 mg/dL (7.8-10.44); Carbon Dioxide 9 mmol/L (22-29); Chloride 106 mmol/L (98-107); Estimated GFR-MDRD 30; Glucose 96 mg/dL (70-105); Magnesium 2.1 mg/dL (1.6-2.6); Potassium 4.1 mmol/L (3.5-5.1); Sodium 136 mmol/L (136-145)
[2020-04-12 04:56] LABS: HBSAg Index 0.25 S/CO (0-0.99); Hep B Surf Ag Non-Reactive S/CO (NonReactive)
[2020-04-12 04:57] LABS: Hep A IgM AB Non-Reactive (NonReactive); Hep C IgG Ab Non-Reactive (NonReactive); Hep C Index 0.19 S/CO (0-0.79)
[2020-04-12 04:58] LABS: Band 2 % (5-11); Eosinophils 5 % (0-10); Lymphocytes 21 % (21-51); MDiff Complete? YES; Monocytes 8 % (0-10); Neutrophil 48 % (42-75); Platelet Morphology Comment Appears Decreased; Reactive Lymphocytes 16 % (0-10)
[2020-04-12 04:59] LABS: HBCM Index 0.25 S/CO (0-0.79); Hepatitis B Core IgM Abs Non-Reactive (NonReactive)
[2020-04-12] MEDS: oxyCODONE 5 MG TAB PO PRN ×2 (06:34→10:34)
[2020-04-12] MEDS: Cefepime 2 GM in Sodium Chloride 0.9% 100 ML IVPB SCH (08:45)
[2020-04-12] MEDS: Sulfameth/Trimethoprim DS 800-160mg TAB PO SCH (08:45)
[2020-04-12] MEDS: Lopinavir/Ritonavir 80 MG/20 MG per ML Oral Solution PO SCH (08:45)
[2020-04-12] MEDS: Senokot S 8.6-50 MG TAB PO SCH (08:46)
[2020-04-12] MEDS: Polyethylene Glycol 3350 17 GM Packet PO SCH (08:46)
[2020-04-12] MEDS: methylPREDNISolone Sod Succ 40 MG VIAL IVP SCH (08:51)
[2020-04-12] MEDS ORDERED: Heparin 5,000 UNITS/ML VIAL SC SCH (09:00)
--- NOTE | 2020-04-12 09:14 | PDOC.HOSPP ---
- Subjective Encounter Date: 04/12/20 Encounter Time: 09:12 Subjective: awake, uncomfortable. no appropriate responce to question, etc - Objective Vital Signs & Weight: Vital Signs (12 hours) Temp Pulse Ox 04/12/20 07:34 97 04/11/20 22:00 97.3 F L Weight Weight 167 lb 12.8 oz Most Recent Monitor Data Heart Rate from ECG 111 NIBP 91/53 NIBP BP-Mean 65 Respiration from ECG 25 SpO2 96 I&O: 04/11/20 04/12/20 04/13/20 06:59 06:59 06:59 Intake Total 2950 360 Output Total 490 Balance 2460 360 Result Diagrams: 04/12/20 03:24 04/12/20 03:24 Hospitalist ROS - Medication Medications: Active Medications Generic Name Dose Route Start Last Admin Trade Name Freq PRN Reason Stop Dose Admin Etravirine 200 mg 04/11/20 18:00 04/12/20 08:45 Etravirine 100 Mg Tab PO 200 mg BID-PC TANI Administration Cefepime HCl 2 gm/ Sodium 100 mls @ 200 mls/hr 04/11/20 08:00 04/12/20 08:45 Chloride IVPB 100 mls 0800,1600,[id number] TANI Administration Sodium Bicarbonate 70 meq/ 1,070 mls @ 100 mls/hr 04/11/20 14:00 04/12/20 03:14 Sodium Chloride IV 1,070 mls .[id number] TANI Administration Lamivudine 150 mg 04/11/20 21:00 04/12/20 08:45 Lamivudine 10 Mg/Ml Oral Solution PO 150 mg BID TANI Administration Lopinavir/Ritonavir 400 mg 04/11/20 21:00 04/12/20 08:45 Lopinavir/Ritonavir 80 Mg/20 Mg Per Ml Oral Solution PO 400 mg BID TANI Administration Melatonin 3 mg 04/11/20 22:19 04/11/20 22:56 Melatonin 3 Mg Tab PO 3 mg HS PRN Administration Insomnia Methylprednisolone Sodium Succinate 40 mg 04/11/20 21:00 04/12/20 08:51 Methylprednisolone Sod Succ 40 Mg Vial IVP 40 mg Q12HR TANI Administration Morphine Sulfate 4 mg 04/11/20 00:53 04/12/20 03:04 Morphine 4 Mg/Ml Vial SLOW IVP 4 mg Q4H PRN Administration Severe Pain (7-10) Oxycodone HCl 5 mg 04/11/20 01:00 04/12/20 06:34 Oxycodone 5 Mg Tab PO 5 mg Q4H PRN Administration Severe Pain (7-10) use 1st Pantoprazole Sodium 40 mg 04/11/20 09:00 04/12/20 08:45 Pantoprazole 40 Mg Tab PO 40 mg DAILY TANI Administration Polyethylene Glycol 17 gm 04/11/20 09:00 04/12/20 08:46 Polyethylene Glycol 3350 17 Gm Packet PO Not Given DAILY TANI Senna/Docusate Sodium 1 tab 04/11/20 09:00 04/12/20 08:46 Senokot S 8.6-50 Mg Tab PO Not Given BID TANI Sodium Chloride 10 ml 04/11/20 09:00 04/12/20 08:46 Flush - Normal Saline 10 Ml Syringe IVF 10 ml Q12HR TANI Administration Trimethoprim/Sulfamethoxazole 2 tab 04/11/20 09:00 04/12/20 08:45 Sulfameth/Trimethoprim Ds 800-160mg Tab PO 04/25/20 09:01 2 tab TID TANI Administration - Exam General Appearance: ill appearing Eye: scleral icterus Neck: no JVD Heart: RRR, no murmur Respiratory - other findings: coarse BS, rhonchi Gastrointestinal: tender to palpation, distended, diminished bowl sounds Extremities: 1+ LE edema Hosp A/P (1) HIV (human immunodeficiency virus infection) Code(s): B20 - HUMAN IMMUNODEFICIENCY VIRUS [HIV] DISEASE Status: Acute (2) Kaposi sarcoma Code(s): C46.9 - KAPOSI'S SARCOMA, UNSPECIFIED Status: Acute (3) Thrombocytopenia Code(s): D69.6 - THROMBOCYTOPENIA, UNSPECIFIED Status: Acute (4) Lactic acidosis Code(s): E87.2 - ACIDOSIS Status: Acute (5) Coagulopathy Status: Acute (6) Acute cholecystitis Code(s): K81.0 - ACUTE CHOLECYSTITIS Status: Acute (7) Peritonitis Code(s): K65.9 - PERITONITIS, UNSPECIFIED Status: Acute - Plan progressive acidosis despite fluids and bicarb infusion leads to dx of peritonitis/bowel perforation risk of abdominal procedure very high even if post [place], FFP infusion needs increased fluid intake iv discuss with mangle tender discuss with family, mangle tender, surgery prognosis guarded
--- NOTE | 2020-04-12 09:29 | PDOC.EVN ---
Event Note - Event Note Event Note: palliative care consult requested
[2020-04-12] MEDS ORDERED: Sodium Bicarbonate 140 MEQ in Dextrose 5% in Water 1,000 ML IV SCH (09:45)
--- NOTE | 2020-04-12 10:02 | PRG ---
DATE OF SERVICE: 04/12/2020 SUBJECTIVE: The patient is encephalopathic, complaining of severe abdominal pain. OBJECTIVE: VITAL SIGNS: His temperature is 97.3, pulse 117, blood pressure 119/55, O2 saturations in the low 90s on 2 L nasal cannula. HEENT: Unremarkable. NECK: No JVD. LUNGS: Clear. CARDIAC: S1, S2. Slightly tachycardic. ABDOMEN: Distended. Very tender to palpation. EXTREMITIES: No edema. LABORATORY DATA: Sodium 136, potassium 4.1, chloride 106, CO2 of 9, BUN 78, creatinine 2.4, and glucose 96. INR is 1.8. White blood cell count 7.6, hematocrit 22.7, and platelet count 12. ASSESSMENT: 1. 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 2. Human immunodeficiency virus/acquired immunodeficiency syndrome. 3. Severe metabolic acidosis. PLAN: Basically, I do not see the situation getting better if this is truly Kaposi's sarcoma causing the problems. I think that he should probably be DNR and be placed on hospice care. I have increased his IV fluids, particularly the bicarbonate to see if this will help with the metabolic acidosis, for which, he is having a tough time compensating for. I would continue with pain control. His prognosis is extremely poor. Job ID: [id number]
--- NOTE | 2020-04-12 10:56 | PDOC.FMACP ---
Advance Care Planning - Note Participants: family, surrogate decision-maker, palliative care Summary: Palliative Care introduced Advanced Care Planning to patient mother, patient assessed and secondary to respiratory distress not decisional. The diagnosis, prognosis and goals of care were discussed. Appropriate forms and documentation to accomplish the goals of care were discussed. All questions were answered. Patient mother elected to transition to DNAR and seek comfort measures through Hospice. Please also refer to Palliative care notes in note section. Time Spent (mins): 20
[2020-04-12] MEDS ORDERED: Lorazepam 2 MG/ML VIAL SLOW IVP PRN (11:21)
[2020-04-12 11:50] LABS: SARS-CoV-2 MS2 Positive; SARS-CoV-2 N Gene Negative; SARS-CoV-2 S Gene Negative; SARS-CoV-2 by NAA Not Detected (NotDetected); SARS-CoV-2 orf1ab Negative
--- NOTE | 2020-04-12 12:00 | PDOC.FMACP ---
Advance Care Planning - Problem (1) HIV (human immunodeficiency virus infection) Status: Acute Code(s): B20 - HUMAN IMMUNODEFICIENCY VIRUS [HIV] DISEASE (2) Kaposi sarcoma Status: Acute Code(s): C46.9 - KAPOSI'S SARCOMA, UNSPECIFIED (3) Thrombocytopenia Status: Acute Code(s): D69.6 - THROMBOCYTOPENIA, UNSPECIFIED (4) Lactic acidosis Status: Acute Code(s): E87.2 - ACIDOSIS (5) Coagulopathy Status: Acute (6) Acute cholecystitis Status: Acute Code(s): K81.0 - ACUTE CHOLECYSTITIS (7) Peritonitis Status: Acute Code(s): K65.9 - PERITONITIS, UNSPECIFIED - Note Summary: Advanced Care Planning was discussed. The diagnosis, prognosis and goals of care were discussed. Appropriate forms and documentation to accomplish the goals of care were discussed. All questions were answered. The Palliative Care Team will be engaged to assist with completion of any outstanding forms that are needed. explained hopeless situation. severity of his multiple med problems- Time Spent (mins): 45
--- NOTE | 2020-04-12 12:30 | PRG ---
DATE OF SERVICE: 04/12/2020 SUBJECTIVE: Mr. Land was minimally responsive today. He will open his eyes to his name briefly, but does not follow commands. OBJECTIVE: His abdominal pain is currently controlled well with medications. His abdomen is soft and he is not showing signs of tenderness now to exam. IMPRESSION: 1. Metastatic Kaposi sarcoma. 2. Peritonitis and possible acalculous cholecystitis. 3. Multiorgan failure and thrombocytopenia and acute renal failure. PLAN: He is being transitioned to hospice care today. Job ID: [id number]
--- NOTE | 2020-04-12 14:09 | PDOC.PALCO ---
Palliative Care Consult - Consult Details Requesting Physician: Dr Moreno Reason for Consult: goals of care, complex decision-making - Pertinent HPI 34 year old male with known HIV, kaposis sarcoma of colon, who initially presented to [place] emergency room and was transferred to [facility] for higher level of care. Was initially diagnosed with HIV 2018 and compliant with all medications. Living in [place] and was diagnosed with kaposis sarcoma of the colon, received last chemo 3 weeks ago. He then transitioned to [place], where his mother is. Presented to the emergency room in [place] 04/10 for shortness of breath, weakness, cough, abdominal pain, with history of nausea and vomiting over past 3 days with no mitigating factors. Records indicate that he was receiving Dilaudid and oxycontin for pain. CT was concerning for mesenteric lymphadenitis, cystitis, cholecystitis, colitis, and proctitis. Pneumonia iwth atalectasis. Admitted for medical management. - Pertinent PMH HIV, Kaposis sarcoma of colon, anxiety, depression, PTSD, marijuana abuse - Social History Smoking Status: Never smoker Smoking: no tobacco exposure Alcohol Use: none Drug Use History: marijuana Living Situation: other (with his mother currently) - Medications MAR Reviewed: Yes - Allergies Allergies/Adverse Reactions: Allergies Allergy/AdvReac Type Severity Reaction Status Date / Time No Known Allergies Allergy Verified 04/11/20 00:57 - Subjective Moaning, restless, hypotensive - ROS Non Response: due to mental status - Objective Vital Signs: Vital Signs - Most Recent Temp Pulse Resp BP Pulse Ox 97.3 F L 97 04/11/20 22:00 04/12/20 11:21 Palliative Performance Scale: 30 - Physical Exam Constitutional: encephalitic, ill appearing, mild distress HEENT: EOMI Respiratory: no rhonchi, no wheezing, diminished lung sound, tachypnea Cardiovascular: RRR Gastrointestinal: soft, positive bowel sounds Deviation from normal: tender Musculoskeletal: no cyanosis, no clubbing, edema present Neurology: moves all 4 limbs, no focal deficits Skin: cap refill <2 seconds, no lesions, no rash Deviation from normal: Alert, anxious, confused - Problem List (1) Palliative care encounter Code(s): Z51.5 - ENCOUNTER FOR PALLIATIVE CARE Current Visit: Yes Status: Acute (2) Acute cholecystitis Code(s): K81.0 - ACUTE CHOLECYSTITIS Current Visit: Yes Status: Acute (3) HIV (human immunodeficiency virus infection) Code(s): B20 - HUMAN IMMUNODEFICIENCY VIRUS [HIV] DISEASE Current Visit: Yes Status: Acute (4) Kaposi sarcoma Code(s): C46.9 - KAPOSI'S SARCOMA, UNSPECIFIED Current Visit: Yes Status: Acute (5) Lactic acidosis Code(s): E87.2 - ACIDOSIS Current Visit: Yes Status: Acute (6) Thrombocytopenia Code(s): D69.6 - THROMBOCYTOPENIA, UNSPECIFIED Current Visit: Yes Status: Acute - Plan/Recommendations Plan: Assessed patient, distress. Palliative Care communicated with patient mother. Will transition patient to hospice. Morphine and ativan to mitigate symptoms for shortness of breath, pain, and restlessness. Family en route to see patient. Currently covid rule out. Spiritual care consult. Communicated with Dr Moreno [50] minutes spent on this encounter with >50% of the time in counseling and coordination of care. Thank you for this very appropriate consult.
[2020-04-12 15:11] LABS: ANA Symphony (Qualitative) Negative (Negative); ANA Symphony (Quantitative) 0.3 Ratio (< 0.7 Negative); EliA Vaculitis New Method **** NEW METHOD ****; Mitochondrial Ab 1.4 U/mL (<4 Negative)
[2020-04-12 16:37] LABS: %CD4 (Helper/Inducer) 3.5 % (30.8-58.5); Absolute CD4 84 /uL (359-1519); Lymphocytes/Gated Cell Count 2.4 x10E3/uL (0.7-3.1); Total Lymphocyte 28 % (Not Estab.); WBC Total Count 8.6 x10E3/uL (3.4-10.8); nRBC 1 % (0 - 0)
--- NOTE | 2020-04-13 12:25 | DIS ---
DATE OF ADMISSION: 04/10/2020 DATE OF DISCHARGE: 04/12/2020 PRIMARY CARE PROVIDER: No primary care provider. 04/12/2020 at 2:30 p.m. FINAL DIAGNOSES: Peritonitis, sepsis syndrome, human immunodeficiency virus disease, Kaposi sarcoma, acidosis, thrombocytopenia, coagulopathy. HOSPITAL COURSE: The patient was admitted to [facility] to the Hospitalist Service. He presented with back\abdominal pain, history of HIV infection, Kaposi sarcoma post chemotherapy. He was off his HIV therapy. In the emergency room, he was found to have a white count of 8.6, hemoglobin 7.9, platelet count of 19,000. Lactic acid 7.3. Sodium and potassium were normal. BUN 61, creatinine 1.54. CT of his abdomen revealed reactive changes involving abdominal mesentery with lymphadenopathy fluid. He was thought to possibly have cholecystitis. He had bowel wall thickening. He was placed in the hospital on broad-spectrum antibiotics. Cultures were drawn. He was put on IV fluids. Dr. Mcdaniel, GI was consulted. Dr. Alex Cast, load dispatcher local broach trouble shooter was consulted. Dr. Eduardo Marin, ID was consulted. Dr. Randall Flores, General Surgery was consulted. The patient was continued on IV fluids and antibiotics. His platelet count dropped from 19 to 12 without any evident bleeding. His blood cultures were unrevealing. His INR was 1.8. His lactic acid went from 7.3 to 7.7. Carbon dioxide on lytes went from 13 down to 9. He had elevated liver function tests. The patient remained tachycardic, in distress, thought was given to a laparoscopy or percutaneous drainage of his gallbladder. The patient's status declined. He was considered inoperable even with blood infusions. The family was called. Palliative care was involved. The patient continued to decline. He was made DNAR. Preparations for hospice care and transfer were being made when the patient at 2:30 p.m. this afternoon. PROCEDURES DONE: None. Job ID: [id number]
[2020-04-13 15:15] LABS: LOG10 HIV-1 RNA 1.602 (.)
[2020-04-13 23:39] LABS: Chlam.trachomatis by PCR,Urine Inconclusive (NotDetected)
[2020-04-14] MEDS ORDERED: FLU VACC QS2020-21(6MOS UP)/PF 60 MCG/0.5 ML SYRINGE IM ONE (09:00)
[2020-04-14] MEDS ORDERED: Prevnar 13-Val Conj/PF 0.5 ML SYRINGE IM ONE (09:00)
--- NOTE | 2020-04-14 22:44 | PQF ---
Dear : Fernanda Moreno Date 04/14/20 Please exercise your independent, professional judgment in responding to the clarification form. Clinical indicators are provided on the bottom of this form for your review Can you please further clarify the conflicting diagnosis? Please check appropriate box(es): Conflicting documentation was noted in the Medical Record; please clarify if patient is being treated/monitored for: [ ] Sepsis [ ] Sepsis syndrome [ ] Other diagnosis please specify [ ] Unable to determine Physician Signature: Date/Time: For continuity of documentation, please document condition throughout progress notes and discharge summary. Thank You. To be completed by CDI/Coding staff for physician review: Present Clinical Indicators - Signs / Symptoms / Labs Results and Location in Medical Record [ x ] Transfer from the [place] ER for sepsis, multifocal pneumonia ED Provider pg.1 [ x ] VS: BP 108/74, Pulse 118, Temp 97.9, RR: 34 ED Provider pg.2 [ x ] Severe sepsis with multiple possible sources including pneumonia, acute cholecystitis, colitis H and P.4 [ x ] Severe lactic acidosis Consult pg.2 Dr. Cast [ x ] Sepsis syndrome DS pg.1 Present Risk Factors Results and Location in Medical Record [ x ] Hx of HIV infection ED Provider pg.4 [ x ] Kaposi sarcoma ED Provider pg.4 [ x ] Multifocal pneumonia ED Provider pg.4 [ x ] Acute cholecystitis H and P.4 [ x ] Peritonitis DS pg.1 Present Treatments Results and Location in Medical Record [ x ] Infectious consult Dr. Marin 04/11 [ x ] GI Consult Dr. Mcdaniel 04/11 [ x ] Abdominal ultrasound 04/10 [ x ] Chest/Thorax CTA 04/10 [ x ] IV Fluids MAR [ x ] Azithromycin 1.2mg IV MAR [ x ] Cefepime 2gm IV MAR [ x ] Vancomycin 1 gm IV MAR CDS/Sulfate Drier Machine Operator Signature: Seng Godoy Phone #: ext [phone] Date 04/14/20 This is a permanent part of the Medical Record [facility]
== END 2020-04-12 17:10 | disposition expired | DRG 974 ==
LOC: ERS 17:33 → IMCU/EMU 21:30
PROVIDERS: ADMIT Internal Medicine; ATTEND Internal Medicine
PROC: 3E0234Z Introduction of Serum, Toxoid and Vaccine into Muscle, Percutaneous Approach (ICD-10-PCS; principal; 2020-04-11)
PROC: 3E02340 Introduction of Influenza Vaccine into Muscle, Percutaneous Approach (ICD-10-PCS; 2020-04-11)
DX: A41.9 Sepsis, unspecified organism (principal); K72.00 Acute and subacute hepatic failure without coma; B20 Human immunodeficiency virus [HIV] disease; J18.9 Pneumonia, unspecified organism; K65.9 Peritonitis, unspecified; N17.9 Acute kidney failure, unspecified; C46.4 Kaposi's sarcoma of gastrointestinal sites; K81.0 Acute cholecystitis; E87.2 Acidosis; D68.9 Coagulation defect, unspecified; Z20.828 Contact with and (suspected) exposure to other viral communicable diseases; Z23 Encounter for immunization; Z51.5 Encounter for palliative care; Z66 Do not resuscitate; F41.9 Anxiety disorder, unspecified; F32.9 Major depressive disorder, single episode, unspecified; R65.20 Severe sepsis without septic shock; F43.10 Post-traumatic stress disorder, unspecified; F12.10 Cannabis abuse, uncomplicated; D69.59 Other secondary thrombocytopenia; T45.1X5A Adverse effect of antineoplastic and immunosuppressive drugs, initial encounter; Z91.14 Patient's other noncompliance with medication regimen
CPT/HCPCS: 36415; 36416; 71275; 74177; 76705; 80048; 80074; 80076; 81003; 81015; 82550; 83516; 83605; 83735; 85025; 85048; 85060; 85610; 86038; 86225; 86361; 87491; 87536; 87591; 87635; 96361; 96374; 96375; 96376; C9399; J0692; J2060; J2270; J2405; J2920; J3370; J3475; J3490; J7050; J7070; Q9967; U0003